=== PATIENT | female | born 1955 | race American Indian/Alaskan Native ===

== ENCOUNTER 2017-06-13 07:30 | Inpatient (IN) | payer MEDICARE ==
[2017-06-07 12:14] LABS: Basophils % (Auto) 0.4 % (0.0-1.8); Eosinophils # (Auto) 0.1 K/mm3 (0.0-0.4); Eosinophils % (Auto) 2.1 % (0.0-4.3); Hematocrit 43.2 % (30.3-42.9); Lymphocytes # (Auto) 2.1 K/mm3 (1.2-5.4); Mean Corpuscular HGB Conc 32 % (30-34); Mean Corpuscular Hemoglobin 28 pg (28-32); Mean Corpuscular Volume 85 fl (79-97); Monocytes # (Auto) 0.5 K/mm3 (0.0-0.8); Platelet Count 185 K/mm3 (140-440); Red Blood Count 5.07 M/mm3 (3.65-5.03); Red Cell Distribution Width 14.2 % (13.2-15.2)
[2017-06-07 12:24] LABS: INR 0.91 (0.87-1.13)
[2017-06-07 12:25] LABS: Partial Thromboplastin Time 31.5 Sec. (24.2-36.6)
[2017-06-07 12:38] LABS: Alanine Aminotransferase 22 units/L (7-56); Albumin 4.2 g/dL (3.9-5); BUN/Creatinine Ratio 20; Blood Urea Nitrogen 12 mg/dL (7-17); Calcium 9.3 mg/dL (8.4-10.2); Hemolysis Index 9
[2017-06-26] MEDS ORDERED: ANCEF/STERILE WATER 2 GM/20 ML IV NR (00:01)
[2017-06-26] MEDS ORDERED: MORPHINE IV PRN ×2 (09:09→13:22)
[2017-06-26] MEDS ORDERED: ZOFRAN IV PRN ×3 (09:09→18:55)
[2017-06-26] MEDS ORDERED: SUBLIMAZE IV ONE (10:00)
[2017-06-26] MEDS ORDERED: PEPCID PO NR (10:00)
[2017-06-26] MEDS ORDERED: VERSED IV NR (10:00)
[2017-06-26] MEDS ORDERED: NEURONTIN PO NR (10:00)
[2017-06-26] MEDS ORDERED: XYLOCAINE 1% 20 mL ONE (11:00)
[2017-06-26] MEDS ORDERED: POLYMYXIN B SULFATE IV ONE ×2 (11:01→16:14)
[2017-06-26] MEDS ORDERED: MARCAINE 0.25% INFILTRATI ONE ×2 (11:01→16:14)
[2017-06-26] MEDS ORDERED: TORADOL ONE (11:01)
[2017-06-26] MEDS ORDERED: BACITRACIN ONE (11:02)
[2017-06-26] MEDS ORDERED: CLORPACTIN WCS-90 IR ONE (11:02)
[2017-06-26] MEDS ORDERED: NACL ONE (11:05)
[2017-06-26] MEDS ORDERED: NACL 0.9% 200 ML ONE ×2 (11:05→16:46)
[2017-06-26] MEDS: NACL 0.9% 1000 ML 1,000 ML IV SCH (11:50)
--- NOTE | 2017-06-26 11:57 | Anesthesia Day of Surgery ---
Anesthesia Day of Surgery - Day of Surgery Patient Examined: Yes Patient H&P Reviewed: Yes Patient is NPO: Yes
--- NOTE | 2017-06-26 11:57 | Anesthesia Consultation ---
Anesthesia Consult and Med Hx Date of service: 06/26/17 - Airway Anesthetic Teeth Evaluation: Good, Partials (upper) ROM Head & Neck: Adequate Mental/Hyoid Distance: Adequate Mallampati Class: Class I Intubation Access Assessment: Good - Pulmonary Exam CTA: Yes - Cardiac Exam Cardiac Exam: RRR - Pre-Operative Health Status ASA Pre-Surgery Classification: ASA3 Proposed Anesthetic Plan: General - Pulmonary Hx Smoking: Yes (STOPPED 2015 , IRREGULAR SMOKER) Hx Sleep Apnea: No (SINDY PRE SCREEN LOW RISK/ doc wants her to go for a sleep study) - Cardiovascular System Hx Hypertension: No - Central Nervous System Hx Back Pain: Yes (neck and back. takes injections) Hx Psychiatric Problems: Yes (depression) - Gastrointestinal Hx Gastroesophageal Reflux Disease: Yes - Other Systems Hx Cancer: No - Additional Comments Anesthesia Medical History Comments: fibromyalgia
[2017-06-26] MEDS ORDERED: DECADRON ONE ×2 (12:41→18:22)
[2017-06-26] MEDS ORDERED: MARCAINE 0.5% 30 ML INFILTRATI ONE (12:41)
[2017-06-26] MEDS ORDERED: TRANSDERM-SCOP TD NR (14:00)
[2017-06-26] MEDS ORDERED: BENADRYL IV ONE (15:12)
[2017-06-26] MEDS ORDERED: DILAUDID IV ONE ×2 (15:12→15:30)
[2017-06-26] MEDS ORDERED: XYLOCAINE MPF 2% ONE (15:39)
[2017-06-26] MEDS ORDERED: ZEMURON IV ONE (15:39)
[2017-06-26] MEDS ORDERED: DIPRIVAN 10 MG/ML IV ONE (15:39)
[2017-06-26] MEDS ORDERED: SUBLIMAZE ONE (15:39)
[2017-06-26] MEDS ORDERED: TRANEXAMIC ACID ONE (15:44)
[2017-06-26] MEDS ORDERED: MORPHINE ONE (15:55)
[2017-06-26] MEDS ORDERED: TORADOL IV ONE (16:14)
[2017-06-26] MEDS ORDERED: NACL 0.9% IR ONE ×2 (16:14)
[2017-06-26] MEDS ORDERED: WATER FOR IRRIG STERILE IR ONE (16:14)
[2017-06-26] MEDS ORDERED: NACL 0.9% IV ONE (16:14)
[2017-06-26] MEDS ORDERED: BACITRACIN IR ONE (16:14)
[2017-06-26] MEDS ORDERED: NACL IRRIGATION ONE (16:14)
[2017-06-26] MEDS ORDERED: MORPHINE IM ONE (16:14)
[2017-06-26] MEDS ORDERED: TRANEXAMIC ACID IV ONE (16:20)
[2017-06-26] MEDS ORDERED: DILAUDID ONE (17:31)
[2017-06-26] MEDS ORDERED: ZOFRAN ONE (18:21)
[2017-06-26] MEDS ORDERED: PHENERGAN PR PRN (18:55)
[2017-06-26] MEDS ORDERED: SODIUM CHLORIDE FLUSH SYRINGE 10 ML IV NR (19:00)
[2017-06-26] MEDS ORDERED: NACL 0.9% 1000 ML 1,000 ML ONE (19:09)
[2017-06-26] MEDS ORDERED: NARCAN 0.4 MG/1 ML IV PRN (20:27)
--- NOTE | 2017-06-26 20:46 | Post Anesthesia Evaluation ---
- Post Anesthesia Evaluation Patient Participated: Yes Airway Patent: Yes Stable Respiratory Function: Yes Nausea/Vomiting: No Temp > 96.8F: Yes Pain Manageable: Yes Adequeate Hydration: Yes Anesthesia Complications: No Block Receding Appropriately: Not Applicable Patient on Ventilator: No Other Comments: Extubated at 0841 in PACU. Patient was brought out on T-piece. But not following commands. Respirations and oxygenation were normal. She was given 0.1 mg of Narcan. She then started following. Able to raise head. Suctioned and extubated.
[2017-06-26] MEDS ORDERED: TORADOL IV PRN (21:07)
[2017-06-26] MEDS ORDERED: ASPIRIN PO SCH (22:00)
[2017-06-26] MEDS ORDERED: ceFAZolin 2 GM in NACL 0.9% 100 ML IV SCH (22:00)
[2017-06-26] MEDS ORDERED: NON-FORMULARY (Oxybutynin Chloride [Ditropan Xl] 10 MG) PO SCH (22:00)
[2017-06-26] MEDS: ANCEF/STERILE WATER 2 GM/20 ML 2 GM/20 ML SYRINGE IV SCH (22:50)
[2017-06-26] MEDS: DITROPAN XL PO SCH (22:50)
--- NOTE | 2017-06-26 22:50 | XRay Report ---
FINAL REPORT PROCEDURE: XR KNEE 1-2V RT TECHNIQUE: Right knee, two views HISTORY: tka; POST OP COMPARISON: No prior studies are available for comparison. FINDINGS: There has been right knee arthroplasty. There is soft tissue swelling and a small amount of intra-articular air present. No fracture of the lower [place] bone is seen. Hardware is in the expected position. There is a small 15 millimeter intramedullary sclerotic area in the the distal femoral shaft, of uncertain etiology. IMPRESSION: Patient status post right knee arthroplasty Small intramedullary sclerotic focus in the distal femoral shaft, without radiographic aggressive features on the current radiograph. Follow-up could be obtained as indicated.
[2017-06-26] MEDS: NORCO 10/325 PO PRN (22:57)
[2017-06-26] MEDS: LYRICA PO SCH (22:57)
[2017-06-26] MEDS: AMBIEN PO SCH (22:57)
--- NOTE | 2017-06-26 23:27 | Operative Report ---
PREOPERATIVE DIAGNOSES: 1. Severe advanced osteoarthritis right knee joint. 2. Genu varum deformity. POSTOPERATIVE DIAGNOSES: 1. Severe advanced osteoarthritis right knee joint. 2. Genu varum deformity. PROCEDURES PERFORMED: 1. Right total knee replacement. 2. Partial synovectomy, right knee joint. COMPLICATIONS: None. BLOOD LOSS: Minimal. SURGEON: Quinton Landrum MD IT INFRASTRUCTURE CONSULTANT: Sal Bustillos, operative tech and Darleen Saunders, operative tech. IMPLANTS USED: Trevino and Nephew Journey II femoral component, cobalt chrome size 4 right narrow, tibial tray size 3, asymmetric tibial base plate. Prolong Poly-S, polyethylene liner 10 mm highly cross-linked constrained liner. Patella, all-poly patella 3 peg 7.5 mm thick, 29 mm diameter. INCISION: Midline incision. ARTHROTOMY: Medial parapatellar arthrotomy. Medial release: Yes. Lateral release: No. Recut: No. Vessel saved: Not applicable. Prepatellar thickness: 22 mm. Post-patellar thickness: 21.5. COMPLICATIONS: None. BRIEF HISTORY: The patient has a painful right knee, failed conservative treatment, opted to undergo a surgical intervention for a severe advanced osteoarthritis of the knee, opted for total knee replacement. Risks, benefits discussed. Informed consent obtained, brought to the hospital for the above procedure. DETAILS OF THE OPERATIVE REPORT: The patient was taken to the operating room. Under general endotracheal anesthesia, all the bony prominences were carefully padded, placed supine on the operating table. A thigh tourniquet was placed. Right knee and right lower extremity was prepped and draped in sterile fashion. Timeout was performed. Antibiotic given 2 g Ancef half an hour before the procedure 1 g of TXA 10 minutes before the incision. At leg elevated, tourniquet inflated to 300 mmHg. Longitudinal incision made over anterior aspect of the knee, exposing extensive mechanism. Arthrotomy performed. Patella displaced laterally. Gross finding revealed severe advanced degenerative arthritis. Subperiosteal dissection was continued around the proximal medial tibia and necessary soft tissue release was performed according to fixed angular deformity. Drill was used to open up the femoral canal. Distal intramedullary femoral cutting guide was placed. Distal femur resected at 5 degree valgus angle. Epicondylar access apex was determined. Femoral sizing guide was placed, appropriate components selected. Anterior and posterior condyles were then resected with oscillating saw. Extramedullary tibial cutting guide was placed, proximal tibia resected perpendicular to the long axis of tibia, minimum bone resection performed about 8 mm on the proximal tibia as planned preoperatively. Lamina spreaders were placed between femur and tibia. Arthritic ACL and PCL ligaments were removed and medial and lateral meniscectomy performed. Significant tightness was present on the medial side with flexion and extension and necessary gap balancing was performed by doing appropriate soft tissue release on the medial side. Once this was done, necessary gap balancing was achieved in flexion, extension, medially and laterally. Alignment was checked and found to be accurate. Tibia was prepared by tibial reaming and broach system by placing the tibial tray in proper position, proper external rotation. Femur was then prepared for the box through Trevino and Nephew trial femur using reaming and punch technique. Patella prepared with patellar reaming system prepared for three post-patella. Synovium around the patella was excised. Once this was done, trialing was performed with 10 liner. We had great stability, full extension, full flexion, stable throughout range of motion. Because of the lateral collateral ligament laxity and the medial release, this was performed to balance the gap. We used constrained liner to get better stability. We were extremely stable throughout range of motion, full extension, full flexion, stable throughout range of motion, no instability. Full extension, full flexion. Trial components were removed, thoroughly washed the knee area with antibiotic-soaked normal saline followed by normal saline. Proximal medial tibia was drill holed in that area for better cement integration. Cementing of the knee was performed. Tibia was cemented first, set in proper position, proper external rotation, impacted in place. Excess cement was removed. Femur was then cemented in proper position, proper external rotation, impacted in place. Excess cement was removed. Cementing of the patella was performed, compressed in place, excess cement was removed. Trial liner was then placed. Once the cement was hardened, real tibial articulating surfaces were implanted. The implant was then locked in place. Knee moved through range of motion and found to be extremely stable, full extension, full flexion, stable throughout range of motion. Patella tracked central. Tourniquet released. Hemostasis achieved. No active bleeder as such. Arthrotomy closed. A thorough washing was performed and then pain cocktail injected into the periarticular tissue around the knee. Arthrotomy closed with a combination of #2 Quill suture and 0 Vicryl sutures interrupted. Subcutaneous tissue was closed with 0 and 2-0 Vicryl interrupted sutures. Skin was closed with Monocryl. Aquacel dressing was done. The patient tolerated the procedure very well, shifted to recovery room in stable condition. Sponge and needle count was correct. JOB# [id number] MALIK/EMILY
--- NOTE | 2017-06-26 23:58 | Consultation ---
History of Present Illness - Reason for Consult Consult date: 06/26/17 Medical management Requesting physician: SCOTTY ARTIS - History of Present Illness ABSENTEE-SHAWNEE S/p R TKA- doing well.No postop complications Past History Past Medical History: other (Urinary incontinence PN Depression) Past Surgical History: total knee replacement (Rt) Social history: no significant social history, full code Family history: hypertension Medications and Allergies Allergies Allergy/AdvReac Type Severity Reaction Status Date / Time No Known Allergies Allergy Verified 05/31/17 09:52 Home Medications Medication Instructions Recorded Confirmed Last Taken Type Oxybutynin Chloride [Ditropan Xl] 10 mg PO BID 05/31/17 05/31/17 Unknown History Oxycodone HCl/Acetaminophen 1 each PO Q6HR PRN 05/31/17 05/31/17 Unknown History [Percocet 2.5/325 mg] Pantoprazole [Protonix] 40 mg PO QDAY 05/31/17 05/31/17 Unknown History Pregabalin [Lyrica] 75 mg PO QDAY 05/31/17 05/31/17 05/27/17 History Sertraline [Zoloft] 25 mg PO QDAY 05/31/17 05/31/17 Unknown History Zolpidem [Ambien] 10 mg PO QHS 05/31/17 05/31/17 Unknown History Active Meds: Active Medications Acetaminophen/Hydrocodone Bitart (Mosinee 10/325) 1 each PO Q4H PRN PRN Reason: Pain, Moderate (4-6) Last Admin: 06/26/17 22:57 Dose: 1 each Aspirin (Halfprin Ec) 81 mg PO QDAY ALIA Celecoxib (Celebrex) 200 mg PO BID ALIA Last Admin: 06/26/17 22:56 Dose: 200 mg Sodium Chloride (Nacl 0.9% 1000 Ml) 1,000 mls @ 75 mls/hr IV DIRECT ALIA Last Admin: 06/26/17 11:50 Dose: 75 mls/hr Cefazolin Sodium (Ancef/Sterile Water 2 Gm/20 Ml) 2 gm in 20 mls @ 80 mls/hr IV Q8HR ALIA Stop: 06/27/17 14:14 Last Infusion: 06/26/17 23:15 Dose: Infused Ketorolac Tromethamine (Toradol) 15 mg IV Q6HR ALIA Stop: 06/27/17 18:01 Magnesium Hydroxide (Milk Of Magnesia) 30 ml PO Q4H PRN PRN Reason: Constipation Midazolam HCl (Versed) 2 mg IV PREOP NR Stop: 06/26/17 23:59 Last Admin: 06/26/17 12:45 Dose: 2 mg Morphine Sulfate (Morphine) 2 mg IV Q4H PRN PRN Reason: Pain, Moderate (4-6) Naloxone HCl (Narcan 0.4 Mg/1 Ml) 0.1 mg IV Q2MIN PRN PRN Reason: Res Rate </= 8 or 02 SAT < 92% Last Admin: 06/26/17 20:37 Dose: 0.1 mg Ondansetron HCl (Zofran) 4 mg IV ONCE PRN PRN Reason: Nausea And Vomiting Ondansetron HCl (Zofran) 4 mg IV Q8H PRN PRN Reason: Nausea And Vomiting Oxybutynin Chloride (Ditropan Xl) 10 mg PO BID [facility] Last Admin: 06/26/17 22:50 Dose: 10 mg Pantoprazole Sodium (Protonix) 40 mg PO QDAY [facility] Pregabalin (Lyrica) 75 mg PO BID [facility] Last Admin: 06/26/17 22:57 Dose: 75 mg Promethazine HCl (Phenergan) 25 mg IA Q6H PRN PRN Reason: Nausea And Vomiting Scopolamine (Transderm-Scop) 1 each TD PREOP NR Stop: 06/29/17 13:59 Last Admin: 06/26/17 14:01 Dose: 1 each Sertraline HCl (Zoloft) 25 mg PO QDAY [facility] Sodium Chloride (Sodium Chloride Flush Syringe 10 Ml) 10 ml IV PRN NR Stop: 06/26/17 23:59 Zolpidem Tartrate (Ambien) 10 mg PO QHS [facility] Last Admin: 06/26/17 22:57 Dose: 10 mg Review of Systems All systems: negative Exam - Constitutional Vitals: Temp Pulse Resp BP Pulse Ox 97.3 F L 60 20 159/82 96 06/26/17 21:58 06/26/17 21:58 06/26/17 21:58 06/26/17 21:58 06/26/17 22:37 General appearance: Present: no acute distress, well-nourished - EENT Eyes: Present: PERRL ENT: hearing intact, clear oral mucosa - Neck Neck: Present: supple, normal ROM - Respiratory Respiratory effort: normal Respiratory: bilateral: CTA - Cardiovascular Heart rate: 80 Rhythm: regular Heart Sounds: Present: S1 & S2. Absent: rub, click - Extremities Extremities: no ischemia, pulses intact, pulses symmetrical, No edema Peripheral Pulses: within normal limits - Abdominal General gastrointestinal: Present: soft, non-tender, non-distended, normal bowel sounds Female genitourinary: Present: normal - Rectal Rectal Exam: deferred - Integumentary Integumentary: Present: clear, warm, dry - Musculoskeletal Musculoskeletal: gait normal, strength equal bilaterally - Psychiatric Psychiatric: appropriate mood/affect, intact judgment & insight - Neurologic Neurologic: CNII-XII intact, moves all extremities - Allied Health Allied health notes reviewed: nursing, case management Results - Labs CBC & Chem 7: 06/07/17 11:55 06/07/17 11:55 - Imaging and Cardiology EKG: report reviewed Assessment and Plan - Patient Problems (1) S/P total knee arthroplasty Current Visit: Yes Status: Acute Qualifiers: Laterality: right Qualified Code(s): Z96.651 - Presence of right artificial knee joint Plan to address problem: PT as ordered (2) Depression Current Visit: Yes Status: Chronic Qualifiers: Depression Type: unspecified Qualified Code(s): F32.9 - Major depressive disorder, single episode, unspecified Plan to address problem: Cont Sertraline (3) Peripheral neuropathy Current Visit: Yes Status: Chronic Qualifiers: Peripheral neuropathy type: polyneuropathy, unspecified Qualified Code(s): G62.9 - Polyneuropathy, unspecified Plan to address problem: Cont Lyrica (4) GERD (gastroesophageal reflux disease) Current Visit: Yes Status: Chronic Qualifiers: Esophagitis presence: without esophagitis Qualified Code(s): K21.9 - Gastro -esophageal reflux disease without esophagitis Plan to address problem: Cont Protonix (5) Pain management Current Visit: Yes Status: Acute Plan to address problem: Adequate (6) DVT prophylaxis Current Visit: Yes Status: Acute Plan to address problem: On SCD's and ASA
[2017-06-27] MEDS: NACL 0.9% 1000 ML 1,000 ML IV SCH ×2 (00:38→06:14)
[2017-06-27 04:59] LABS: Hematocrit 40.7 % (30.3-42.9); Hemoglobin 12.8 gm/dl (10.1-14.3)
[2017-06-27 05:06] LABS: INR 0.92 (0.87-1.13)
[2017-06-27 05:08] LABS: BUN/Creatinine Ratio 15; Blood Urea Nitrogen 9 mg/dL (7-17); Calcium 8.5 mg/dL (8.4-10.2); Hemolysis Index 2
[2017-06-27] MEDS: TORADOL IV SCH ×4 (05:57→18:00)
[2017-06-27] MEDS: ANCEF/STERILE WATER 2 GM/20 ML 2 GM/20 ML SYRINGE IV SCH ×2 (05:58→14:13)
[2017-06-27] MEDS: ZOLOFT PO SCH (10:22)
[2017-06-27] MEDS: LYRICA PO SCH ×2 (10:22→22:26)
[2017-06-27] MEDS: HALFPRIN EC PO SCH (10:22)
[2017-06-27] MEDS: PROTONIX PO SCH (10:22)
[2017-06-27] MEDS: DITROPAN XL PO SCH ×2 (10:23→22:26)
[2017-06-27] MEDS: NORCO 10/325 PO PRN (10:25)
--- NOTE | 2017-06-27 13:27 | Progress Note ---
Subjective Date of service: 06/27/17 Interval history: pod1 s/p TKA right, doing well, no comp,lainrts dressing dry avss, nvi calf soft NT pain under control dc planning once clear by medicine and PT case management to plan her DC. DC INSTRUCTION SHEET TKA Objective Vital signs: Vital Signs - 12hr 06/27/17 06/27/17 06/27/17 04:04 04:10 08:09 Temperature 97.4 F L 97.7 F Pulse Rate 72 66 Respiratory 16 18 Rate Blood Pressure 130/84 122/70 Blood Pressure 130/84 [Left] O2 Sat by Pulse 98 99 Oximetry 06/27/17 06/27/17 06/27/17 08:10 10:00 10:23 Temperature Pulse Rate 67 Respiratory 20 Rate Blood Pressure Blood Pressure [Left] O2 Sat by Pulse 98 98 Oximetry 06/27/17 06/27/17 06/27/17 10:25 11:25 12:02 Temperature Pulse Rate Respiratory 20 20 20 Rate Blood Pressure Blood Pressure [Left] O2 Sat by Pulse Oximetry - Labs CBC & BMP: 06/27/17 04:18 06/27/17 04:18 Labs: Abnormal lab results 06/27/17 Range/Units 04:18 Creatinine 0.6 L (0.7-1.2) mg/dL Glucose 148 H (65-100) mg/dL
[2017-06-27] MEDS ORDERED: TYLENOL PO PRN (13:28)
[2017-06-27] MEDS: ROXICODONE PO PRN ×2 (14:11→18:34)
[2017-06-27] MEDS: AMBIEN PO SCH (22:27)
[2017-06-27] MEDS: MILK OF MAGNESIA PO PRN (22:29)
[2017-06-28] MEDS: ROXICODONE PO PRN ×2 (00:08→20:20)
[2017-06-28] MEDS: HALFPRIN EC PO SCH (09:55)
[2017-06-28] MEDS: LYRICA PO SCH ×2 (09:55→23:07)
[2017-06-28] MEDS: MORPHINE IV PRN ×3 (09:56→23:12)
[2017-06-28] MEDS: ZOLOFT PO SCH (09:56)
[2017-06-28] MEDS: PROTONIX PO SCH (09:56)
[2017-06-28] MEDS: DITROPAN XL PO SCH ×2 (09:57→23:11)
--- NOTE | 2017-06-28 13:21 | Progress Note ---
Subjective Date of service: 06/28/17 Interval history: patient lying comfortably in bed. not happy with nursing staff. tells me that her foot got caught in the cord and while she was doing knee exerc she felt a big pop in her lower knee which incresed some pain and swelling knee inspecvted dressing dry mild swelling as expected. no signs of infection calf soft NT Xrays recomm.- no fracture seen. possibily she might have broken some stiches presumbly but no blood in the knee wound . no drainage Recom. ICE, BRACE MODIFIOED ACTIVITY PAIN MEDS PRN AND SCRIPT PROVIDED. DC PLANNING ONCE CLEAR BUY MEDICINE AND PT AND ONCE HH ARRANGEMENTS ARE MADE Objective Vital signs: Vital Signs - 12hr 06/28/17 06/28/17 06/28/17 03:51 04:19 07:06 Temperature 98.5 F 98.6 F Pulse Rate 65 79 Respiratory 18 16 Rate Blood Pressure 124/62 104/62 O2 Sat by Pulse 97 92 Oximetry 06/28/17 11:28 Temperature 98.3 F Pulse Rate 63 Respiratory 20 Rate Blood Pressure 147/83 O2 Sat by Pulse 97 Oximetry - Labs CBC & BMP: 06/27/17 04:18 06/27/17 04:18
--- NOTE | 2017-06-28 13:34 | XRay Report ---
RIGHT KNEE, 2 VIEWS History: Pain. Findings: The right knee prosthesis is unchanged in position and alignment since 06/26/17. No evidence for fracture, bone lesion or large joint effusion. Soft tissue swelling has decreased slightly. Impression: Unremarkable right knee exam.
--- NOTE | 2017-06-28 15:55 | Discharge Summary ---
Providers - Providers Date of Admission: 06/26/17 13:10 Date of discharge: 06/28/17 Attending physician: SCOTTY ARTIS 06/26/17 18:55 Consult to Case Management [CONS] Routine Services Needed at Discharge: Home Health Services Physical Therapy [employer] Equipment Notified:: yes Phone number called:: [phone] Time called:: 16:25 Comment:: Seeam is aware of this consult Consult to Physician [CONS] Routine Consulting Provider: STACEY AL Reason For Exam: postop TKA Place consult to:: [place] Notified:: yes Phone number called:: [phone] Time called:: 16:45 Comment:: Dr Al states that he is aware of this consult 06/26/17 18:56 Physical Therapy Evaluation and Treat [CONS] Routine Comment: Reason For Exam: POSTOP TKA Primary care physician: CHENG BROWN Hospitalization Hospital course: Assessment and Plan - Patient Problems (1) S/P total knee arthroplasty Current Visit: Yes Status: Acute Qualifiers: Laterality: right Qualified Code(s): Z96.651 - Presence of right artificial knee joint Plan to address problem: PT as ordered Patient doing well.Home PT uneventful p (2) Depression Current Visit: Yes Status: Chronic Qualifiers: Depression Type: unspecified Qualified Code(s): F32.9 - Major depressive disorder, single episode, unspecified Plan to address problem: Cont Sertraline (3) Peripheral neuropathy Current Visit: Yes Status: Chronic Qualifiers: Peripheral neuropathy type: polyneuropathy, unspecified Qualified Code(s): G62.9 - Polyneuropathy, unspecified Plan to address problem: Cont Lyrica (4) GERD (gastroesophageal reflux disease) Current Visit: Yes Status: Chronic Qualifiers: Esophagitis presence: without esophagitis Qualified Code(s): K21.9 - Gastro -esophageal reflux disease without esophagitis Plan to address problem: Cont Protonix (5) Pain management Current Visit: Yes Status: Acute Plan to address problem: Adequate (6) DVT prophylaxis Current Visit: Yes Status: Acute Plan to address problem: On SCD's and ASA Disposition: DC/TX-06 HOME UNDER HOME HLTH - Discharge Diagnoses (1) S/P total knee arthroplasty Status: Acute Qualifiers: Laterality: right Qualified Code(s): Z96.651 - Presence of right artificial knee joint (2) Depression Status: Chronic Qualifiers: Depression Type: unspecified Qualified Code(s): F32.9 - Major depressive disorder, single episode, unspecified (3) Peripheral neuropathy Status: Chronic Qualifiers: Peripheral neuropathy type: polyneuropathy, unspecified Qualified Code(s): G62.9 - Polyneuropathy, unspecified (4) GERD (gastroesophageal reflux disease) Status: Chronic Qualifiers: Esophagitis presence: without esophagitis Qualified Code(s): K21.9 - Gastro -esophageal reflux disease without esophagitis (5) Pain management Status: Acute (6) DVT prophylaxis Status: Acute Core Measure Documentation - Palliative Care Palliative Care/ Comfort Measures: Not Applicable - Core Measures Any of the following diagnoses?: none Exam - Constitutional Vitals: Temp Pulse Resp BP Pulse Ox 98.3 F 63 20 147/83 97 06/28/17 11:28 06/28/17 11:28 06/28/17 11:28 06/28/17 11:28 06/28/17 11:28 Plan Follow up with: CHENG BROWN MD [Primary Care Provider] - 7 Days
[2017-06-28] MEDS: MILK OF MAGNESIA PO PRN (20:23)
[2017-06-28] MEDS: AMBIEN PO SCH (23:12)
[2017-06-29] MEDS: ROXICODONE PO PRN (07:23)
[2017-06-29] MEDS: PROTONIX PO SCH (11:00)
[2017-06-29] MEDS: HALFPRIN EC PO SCH (11:30)
[2017-06-29] MEDS: LYRICA PO SCH (11:30)
[2017-06-29] MEDS: ZOLOFT PO SCH (11:30)
[2017-06-29] MEDS: DITROPAN XL PO SCH (11:30)
[2017-06-29 12:01] VITALS: BP 175/85
[2017-06-29] MEDS: MORPHINE IV PRN (13:02)
== END 2017-06-29 14:45 | disposition home health service (06) | DRG 470 ==
LOC: 3A 06-26 13:10 → 3B-SURG 06-26 19:22
PROVIDERS: ADMIT Orthopaedic Surgery; ATTEND Orthopaedic Surgery
PROC: 0SRC0J9 Replacement of Right Knee Joint with Synthetic Substitute, Cemented, Open Approach (ICD-10-PCS; principal; 2017-06-26)
DX: M17.11 Unilateral primary osteoarthritis, right knee (principal); K21.9 Gastro-esophageal reflux disease without esophagitis; F32.9 Major depressive disorder, single episode, unspecified; G62.9 Polyneuropathy, unspecified; Z87.891 Personal history of nicotine dependence; M79.7 Fibromyalgia; Z82.49 Family history of ischemic heart disease and other diseases of the circulatory system
CPT/HCPCS: 36415; 80048; 80053; 85014; 85018; 85025; 85610; 85730; 86850; 86900; 86901; 87116; 88304; 88305; 88311; A4217; C1713; C1776; J0690; J1100; J1170; J1200; J1885; J2250; J2270; J2310; J2405; J2704; J3010; J7030